=== PATIENT | female | born 1965 | race Hispanic/Latino ===

== ENCOUNTER 2017-06-19 14:16 | Outpatient (CLI) | payer OTHER ==
--- NOTE | 2017-06-19 16:41 | XRay Report ---
BILATERAL HAND THREE VIEWS EACH: 06/19/17 CLINICAL: Bilateral hand pain. FINDINGS: Right:No fracture or dislocation.Moderate osteoarthritis involving the basal joint of the thumb as well as the first MCP joint and the IP joint of the thumb. Very mild osteoarthritis of the DIP joints of digits 2 through 5. No erosions. The carpal bones are intact. The distal radius and ulna are normal. Mild soft tissue swelling of the thumb, index and ring fingers. No soft tissue air or foreign body. Left: No fracture or dislocation.Moderately severe osteoarthritis at the basal joint of the thumb and less severe osteoarthritis involving the first MCP joint and the IP joint of the thumb. Lesser degrees of osteoarthritis involving the DIP joints of digits 2 through 5. No erosions. The carpal bones are intact. The distal radius and ulna are normal. Mild soft tissue swelling of the thumb, index and no fingers. No soft tissue air or far body.Normal soft tissues. IMPRESSION: Bilateral osteoarthritis with greater involvement of the thumbs and worst at the basal joint of the left thumb.
== END 2017-06-19 14:17 | disposition home or self-care (01) ==
LOC: SPVIMAG 14:16
PROVIDERS: ATTEND Orthopaedic Surgery
DX: M18.9 Osteoarthritis of first carpometacarpal joint, unspecified (principal); M19.041 Primary osteoarthritis, right hand; M19.042 Primary osteoarthritis, left hand